=== PATIENT | female | born 2000 | race African-American/Black ===

== ENCOUNTER 2020-04-18 15:47 | Day surgery (SDC) | payer MEDICAID ==
[2020-04-18] MEDS ORDERED: hydrALAZINE 20 MG/ML VIAL SLOW IVP PRN (16:29)
--- NOTE | 2020-04-18 16:39 | PDOC.LDHP ---
Labor and Delivery H&P Chief complaint: abdominal pain HPI: 19 y/o at 20w0d presents via EMS for abdominal pain. Pain started this morning and has been off and on in her lower abdomen. Pain lasts a few minutes before it goes away. Unsure if it is contractions or just the baby moving. Denies UTI sx. No constipation or diarrhea. She sees an MFM for unknown reasons in [place]. Has history of delivery at about 32 weeks, due to FHRA and PPROM. Denies VB or LOF. +FM. Was diagnosed with Syphilis a few days ago by her primary OB and has follow up scheduled. Plans to deliver in [place]. ROS neg for HEENT, cv, pulm, gi, gu, neuro, psych, skin, musculoskeletal or constitutional symptoms other than mentioned above. OB History Details: 1 prior LTCS at 32 weeks for FHRA and PPROM Current complications: other (syphilis, sees MFM for unknown reason) Past Medical History: None Current medications: pre-catalino vitamins Previous surgical history: low tranverse CS Allergies/Adverse Reactions: Allergies Allergy/AdvReac Type Severity Reaction Status Date / Time No Known Allergies Allergy Verified 04/18/20 16:03 Social history: none - Physical Exam Vital signs reviewed and normal: yes General: NAD, resting Lungs: nonlabored breathing Abdomen: gravid (mildly tender to palpation of lower abdomen) Extremeties: no edema FHT: category 1 (140s) [place] contractions every: none - Vaginal Exam cm dilated: 0 Effacement: 0% (0) Station: -3 (0) - OB Labs Urine drug screen: negative (in [place]) - Assessment 19 y/o at 20w0d with no e/o acute process. status reassuring with +FHTs. Labs and UA in [place] all wnl. UDS negative. - Plan -: D/c home with precautions. Advised to keep all appointments.
== END 2020-04-18 17:20 | disposition home or self-care (01) ==
LOC: L&D/OP 15:47
PROVIDERS: ATTEND Obstetrics & Gynecology
DX: O99.89 Other specified diseases and conditions complicating pregnancy, childbirth and the puerperium (principal); R10.9 Unspecified abdominal pain; O34.211 Maternal care for low transverse scar from previous cesarean delivery; O98.112 Syphilis complicating pregnancy, second trimester; Z3A.20 20 weeks gestation of pregnancy